=== PATIENT | male | born 1945 | race Caucasian/White ===

== ENCOUNTER 2021-02-10 08:58 | Outpatient (CLI) | payer MEDICARE, OTHER ==
[2021-02-10 10:27] LABS: Hemoglobin 15.1 g/dL (13.5-17.5); Mean Corpuscular HGB CONC 33.1 g/dL (32.0-36.0); Mean Corpuscular Hemoglobin 32.3 pg (27.0-33.0); Mean Corpuscular Volume 97.6 fl (81.2-95.1); Mean Platelet Volume 9.2 fl (7.4-10.4); Platelet Count 258 10x3/uL (150-450); RBC Distribution Width 12.4 % (11.5-14.5); Red Blood Cell (RBC) Count 4.67 10x6/uL (4.32-5.72); White Blood Cell (WBC) Count 9.5 10x3/uL (3.5-10.5)
[2021-02-10 10:48] LABS: Anion Gap 15 mmol/L (10-20); BUN (Urea Nitrogen) 18 mg/dL (8.4-25.7); Calc. Creatinine Clearance 0 mL/min (70-130); Carbon Dioxide 29 mmol/L (23-31); Chloride 103 mmol/L (98-107); Glucose 86 mg/dL (83-110); Potassium 4.7 mmol/L (3.5-5.1); Sodium 142 mmol/L (136-145)
[2021-02-10 10:51] LABS: INR-International Normal Ratio 0.9; PTT 25.9 sec (22.0-33.0); Prothrombin Time 10.5 sec (9.5-12.1)
[2021-02-10 17:21] LABS: SARS-CoV-2 PCR by NAA Not Detected (NotDetected)
== END 2021-02-10 08:59 | disposition home or self-care (01) ==
LOC: LABBT 08:58
PROVIDERS: ATTEND Neurological Surgery
DX: Z01.812 Encounter for preprocedural laboratory examination (principal); M50.00 Cervical disc disorder with myelopathy, unspecified cervical region; Z20.822 Contact with and (suspected) exposure to COVID-19
CPT/HCPCS: 80048; 85027; 85610; 85730; U0003; U0005

== ENCOUNTER 2021-02-15 05:43 | Day surgery (SDC) | payer MEDICARE, OTHER ==
[2021-02-14 11:35] VITALS: BMI 40.1
[2021-02-15] MEDS ORDERED: ceFAZolin Sodium (SDC) 2 GM/100 ML BAG ONE (06:06)
[2021-02-15] MEDS ORDERED: Thrombin 5000 UNITS/5 ML VIAL ONE (06:10)
[2021-02-15] MEDS ORDERED: Neomycin-Polymyxin 1 ML AMP ONE (06:10)
[2021-02-15] MEDS ORDERED: Fentanyl 100 MCG/2 ML VIAL ONE ×3 (06:35→11:18)
[2021-02-15] MEDS ORDERED: Phenylephrine 10 MG/ML VIAL ONE (06:36)
[2021-02-15] MEDS ORDERED: Ketamine 50 MG/ML (10ML VIAL) ONE (06:36)
[2021-02-15] MEDS ORDERED: Rocuronium Bromide 10 MG/ML (10ML VIAL) ONE (06:56)
[2021-02-15] MEDS ORDERED: Glycopyrrolate 0.2 MG/ML 5 ML SYRINGE ONE (06:56)
[2021-02-15] MEDS ORDERED: Ondansetron PF 4 MG/2 ML Vial ONE (06:56)
[2021-02-15] MEDS ORDERED: ePHEDrine 50 MG/ML VIAL ONE (06:56)
[2021-02-15] MEDS ORDERED: PHENYLEPHRINE-NS 100 MCG/ML 10 ML SYRINGE ONE (06:56)
[2021-02-15] MEDS ORDERED: PROPOFOL 200 MG/20 ML VIAL ONE (06:56)
[2021-02-15] MEDS ORDERED: Lidocaine 1% PF 5 ML VIAL ONE (06:56)
[2021-02-15] MEDS ORDERED: Norepinephrine 4 MG/4 ML VIAL ONE (07:20)
[2021-02-15] MEDS ORDERED: SUGAMMADEX SODIUM 200 MG/2 ML VIAL ONE ×2 (10:27→10:33)
[2021-02-15] MEDS ORDERED: HYDROcodone/Acetaminophen 5/325 mg Tablet ONE (12:28)
[2021-02-15] MEDS ORDERED: tiZANidine HCl 4 MG TAB ONE (12:41)
[2021-02-15] MEDS ORDERED: Acetaminophen/Codeine 30-300mg Tablet ONE (12:51)
[2021-02-15] MEDS ORDERED: Tamsulosin HCl 0.4 MG CAP ONE (13:43)
== END 2021-02-15 14:44 | disposition home or self-care (01) ==
LOC: SDC 05:43
PROVIDERS: ATTEND Neurological Surgery
PROC: 0RG20A0 Fusion of 2 or more Cervical Vertebral Joints with Interbody Fusion Device, Anterior Approach, Anterior Column, Open Approach (ICD-10-PCS; principal; 2021-02-15)
DX: M50.01 Cervical disc disorder with myelopathy, high cervical region (principal); M54.16 Radiculopathy, lumbar region; M48.061 Spinal stenosis, lumbar region without neurogenic claudication; M19.90 Unspecified osteoarthritis, unspecified site; J45.909 Unspecified asthma, uncomplicated; E78.00 Pure hypercholesterolemia, unspecified; G89.29 Other chronic pain; M10.9 Gout, unspecified; Z87.891 Personal history of nicotine dependence; Z79.899 Other long term (current) drug therapy; Z88.5 Allergy status to narcotic agent; Z88.8 Allergy status to other drugs, medicaments and biological substances
CPT/HCPCS: 76000; C1713; C1776; J0690; J2370; J2405; J2704; J3010; J3490